=== PATIENT | female | born 1975 | race Caucasian/White ===

== ENCOUNTER 2017-03-06 10:48 | Emergency (ER) | payer OTHER ==
[~2017-03-06] VITALS: Wt 61.0 kg
[2017-03-06] MEDS ORDERED: IBUP-1542 PO (11:07)
[2017-03-06] MEDS ORDERED: AZIT250T94 PO (11:07)
[2017-03-06] MEDS ORDERED: FLUT9.9S NASAL (11:09)
[2017-03-06] MEDS ORDERED: FEXO180T61 PO (11:09)
--- NOTE | 2017-03-06 11:12 | ERD ---
ER Documentation Chief Complaint Date/Time DATE: 03/06/17 TIME: 11:10 Chief Complaint ALLERGIES WTH RUNNY NOSE AND WATERY EYES X 1 WEEK HPI This 5-year-old female presents with a one-week history of nasal congestion and headache. She also some watery eyes. She may have slightly colored mucus but mostly clear. She has chills but no fevers. She has no significant cough, vomiting, neck stiffness, rashes. She is possibly allergic to some seasonal implants but uncertain. ROS All systems reviewed and are negative except as per history of present illness. Medications Home Meds Active Scripts Fluticasone Propionate (Flonase Allergy Relief) 9.9 Ml [place].susp, 1 SPRAY NASAL DAILY, #1 BOTTLE TO EACH NOSTRIL Prov:SEEMA LIMON MD 03/06/17 Fexofenadine Hcl* (Elayne*) 180 Mg Tablet, 180 MG PO DAILY, #15 TAB Prov:SEEMA LIMON MD 03/06/17 Azithromycin* (Zithromax*) 250 Mg Tablet, 250 MG PO .ZPACK DIRECTED, #6 TAB TAKE 500 MG (2 TABS) THE FIRST DAY THEN 250 MG (1 TAB) DAYS 2-5 Prov:SEEMA LIMON MD 03/06/17 Ibuprofen* (Motrin*) 600 Mg Tab, 600 MG PO Q6, #15 TAB Prov:SEEMA LIMON MD 03/06/17 Allergies Allergies: Coded Allergies: No Known Allergy (Unverified , 03/06/17) PMhx/Soc Medical and Surgical Hx: pt denies Medical Hx, pt denies Surgical Hx Hx Alcohol Use: No Hx Substance Use: No Hx Tobacco Use: No Physical Exam Vitals Vital Signs Date Time Temp Pulse Resp B/P Pulse Ox O2 Delivery O2 Flow Rate FiO2 03/06/17 10:52 99.4 84 18 121/71 98 Physical Exam Const: [] Alert, [id number] per Head: Atraumatic Eyes: Normal Conjunctiva ENT: Normal External Ears, Nose and Mouth. Pupils nasal congestion. Mild tenderness in the maxillary and frontal sinuses and bitemporal area. TMs normal. Oropharynx normal. Neck: Full range of motion..~ No meningismus. Resp: Clear to auscultation bilaterally Cardio: Regular rate and rhythm, no murmurs Abd: Soft, non tender, non distended. Normal bowel sounds Skin: No petechiae or rashes Back: No midline or flank tenderness Ext: No cyanosis, or edema Neur: Awake and alert Psych: Normal Mood and Affect Results 24 hrs Current Medications Medications (Trade) Dose Ordered Sig/Dora Route PRN Reason Start Time Stop Time Status Last Admin Dose Admin Dexamethasone (Decadron) 10 mg ONCE ONCE PO 03/06/17 11:30 03/06/17 11:31 Ibuprofen (Motrin) 600 mg ONCE ONCE PO 03/06/17 11:30 03/06/17 11:31 Procedures/MDM Patient presents with nasal congestion and headache which appears to be frontal and related to sinus headaches. Signs and symptoms do not suggest meningitis, mass-effect, neurologic deficit. She will be treated with Elayne and Flonase, and Decadron 10 mg by mouth here for allergic rhinitis. Patient is requesting treatment for sinusitis but will be counseled to hold prescription for Zithromax to see if treatment for allergic rhinitis improves. She should otherwise recheck for new or worsening symptoms. The patient was stable with no new complaints during the ER course. Clinically, there is no current evidence to suggest meningitis, sepsis, acute abdomen, pneumonia, acute coronary syndrome, pulmonary embolism, or any other emergent condition appearing to require further evaluation or hospitalization. The patient should certainly return for any new or worsening symptoms per the aftercare instructions. They should otherwise follow-up with her primary care doctor for reevaluation this week. Departure Diagnosis: Primary Impression: Allergic rhinitis Allergic rhinitis trigger: unspecified Allergic rhinitis seasonality: unspecified seasonality Qualified Code: J30.9 - Allergic rhinitis, unspecified allergic rhinitis trigger, unspecified rhinitis seasonality Additional Impression: Sinusitis Sinusitis location: unspecified location Chronicity: unspecified Qualified Code: J32.9 - Sinusitis, unspecified chronicity, unspecified location Condition: Stable Patient Instructions: Allergic Rhinitis, Sinus Headache Additional Instructions: Likely allergic rhinitis but will treat for infection given the duration. Recheck for new or worsening symptoms with primary care doctor. SEEMA LIMON MD Mar 06, 2017 11:12
[2017-03-06] MEDS ORDERED: IBUPROFEN 600 MG TAB PO ONE (11:30)
[2017-03-06] MEDS ORDERED: DEXAMETHASONE 4 MG TAB PO ONE (11:30)
== END 2017-03-06 11:45 | disposition home or self-care (01) ==
LOC: FTE 10:48
DX: J30.9 Allergic rhinitis, unspecified (principal); J30.2 Other seasonal allergic rhinitis; J32.9 Chronic sinusitis, unspecified
CPT/HCPCS: 99283